=== PATIENT | female | born 1950 | race Caucasian/White ===

== ENCOUNTER 2019-08-13 09:00 | Outpatient (RCR) | payer MEDICARE, BC, SELFPAY ==
--- NOTE | 2019-05-13 09:13 | PCPTNOTE ---
The treatment documented on this account is a continuation of the treatment documented on visit number [id number] in [employer] EMR. Please see documentation on both accounts to view progress. The Plan of Care has been transitioned and updated within the new V#. I have addressed and agree with the discipline specific Problems, Interventions, and Goals for the current certification period. Completed interventions, outcomes, and problems have been marked as Inactive to facilitate the copying of the Care plan routine for recurring accounts.
--- NOTE | 2019-05-23 13:11 | PTOPEVAL ---
PHYSICAL THERAPY REEVALUATION AND UPDATED PLAN OF CARE 05-23-19 Mrs. Hearn has received 16 Physical Therapy sessions, from January 29 to today, for the diagnosis of R breast lymphedema. She was out of town on vacation for 2 weeks of the time frame since the last reevaluation on 04-11-19, so has only had 5 session since then. Compared to the reevaluation on 04-11-19: She has improved with R shoulder flexion and abduction range of motion and strength; decreased fibrosis and tenderness over outer breast. There continues to be tenderness and fibrosis of tissue over inner breast and nipple. And over axillary area, into medial arm, to medial elbow and anterior - mid forearm. Her pain rating is the same. She has been educated on self massage, home exercises for R shoulder and lymphedema care. She may require a compression sleeve to manage her tenderness and pain over R arm; She does not have any edema over her R arm or hand. Her chemo therapy has completed and radiation will start June 01. Recommendation to continue PT treatments 1-2x/week for 6 weeks. Thank you for referring Mrs. Hearn to [facility]. Please review, sign, date and return this plan of care [facility]. I agree with and certify that the following plan of care is medically necessary. Referring Physician Date Admitting Provider: Attending Provider: Genet Elkins MD Referring Provider: *PT Outpatient Evaluation Start: 05/22/19 14:42 Freq: Status: Active Protocol: Document 05/23/19 09:05 EILEEN (Rec: 05/23/19 10:08 EILEEN [email or web address]) Therapy Assessment Status Assessment Status Assessment Status Re-evaluation Evaluation Information Problem Subjective Information Leona reports she is doing well Query Text:As Reported By Patient/ - went on vacation for 2 weeks Family , was able to golf twice, doing home tasks in kitchen with pulling in arm with reaching into cabinet; stated she chemo is completed and is starting radiation Jun 02 to Jul 01. She has been doing her exercises and self massage . Pain Assessment Timing of Pain Assessment Timing of Pain Assessment Assessment Pain Scale Pain Scale Used Numeric (1 - 10) Self Report Pain Assessment Right Breast(s) Reported Pain Level 1 Pain Description Aching,Pulling,Tightness Pain Radiation Right Arm Radicular Pain Location under arm pit, to medial humerus, medial elbow and to ant-mid forearm--pull Pain Frequency Continuous Other Pain Description numbness and tingling in fingers and feet- is less, but still there Current Pain Intensity 1 Lowest Pain Intensity 1 Greatest Pain Intensity
--- NOTE | 2019-07-07 09:52 | PTOPEVAL ---
PHYSICAL THERAPY RE-EVALUATION 07-07-19 Mrs. Hearn has received a total of 21 Physical Therapy sessions, from January 29 to today, for the diagnosis of R breast lymphedema. Since the last reevaluation on 05-23-19: radiation is completed and she continues with herceptin every 3 weeks. Leona has improved with less pain and tenderness with cording over R arm but she still has fibrosis and tenderness over medial elbow and anterior- upper forearm. 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 There continues to be tenderness and fibrosis over outer and lower-inner breast and nipple, but it is less. Her R shoulder flexion AROM is about the same, with less reports of pain and pulling. She has a compression sleeve, but it is uncomfortable and tight over her forearm, can only tolerate wearing it a few hours, then have to remove it. The kinesiotape is helping with decreasing the pain and tenderness over the elbow and forearm. Leona continues to do her R arm exercises and do her self massage. Recommendation is to continue PT 1x/week for 5 weeks, to further decrease the fibrosis, lymphedema and cording over her R breast and UE. Thank you for referring Mrs. Hearn to [facility]. Please review, sign, date and return this plan of care [facility]. I agree with and certify that the following plan of care is medically necessary. Referring Physician Date Attending Provider: Dr. Genet Elkins *PT Outpatient Re-Evaluation Document 07/07/19 08:55 EILEEN (Rec: 07/07/19 09:52 EILEEN [email or web address]) Therapy Assessment Status Assessment Status Assessment Status Re-evaluation Evaluation Information Problem Subjective Information Tenisha reports: cording is Query Text:As Reported By Patient/ less, tenderness but not Family painful; kinesiotape helps; radiation is completed; have herceptin treatments every 3 weeks; has compression sleeve, but it is too tight and uncomfortable, feels like PT is helping and wants to continue therapy. Pain Assessment Timing of Pain Assessment Timing of Pain Assessment Assessment Pain Scale Pain Scale Used Numeric (1 - 10) Self Report Pain Assessment Right Breast(s) Reported Pain Level 0 Pain Description Radiating,Tightness Pain Radiation Right Arm Radicular Pain Location no pain, but tender and pulling at arm pit, medial elbow,forearm to wrist Pain Frequency Intermittent Interventions Used By Clinicians Taping Other Alleviating Interventions kinesiotape with 4 strips,to facilitate lymph flow- 2 over forearm&2 humerus Pain Score Pain Score 0: Self Report Upper Extremity Range of Motion General Upper Extremity Range of Motion Gross Upper Extremity Range of Motion R shoulder active flexion to Comments 135' with reports of pulling under arm- axilla, medial
--- NOTE | 2019-08-13 10:30 | PTOPEVAL ---
PHYSICAL THERAPY DISCHARGE 08-13-2019 Mrs. Hearn has received 26 Physical Therapy sessions, from January 29 to today, for the diagnosis of R breast lymphedema. Leona will be discharged from PT services at this time, the goals were partially achieved. She is independent with her home exercises, self massage, has a compression sleeve and bra and demonstrates a good understanding of self care of her lymphedema. Leona has returned to all of her usual home tasks and activities. She continues to have Herceptin treatment, with 8 more remaining. Thank you for referring Mrs. Hearn to [facility]. Please review, sign, date and return this plan of care [facility]. I agree with and certify that the following plan of care is medically necessary. Referring Physician Date Attending Provider: Dr. Genet Elkins *PT Outpatient Discharge Document 08/13/19 10:14 EILEEN (Rec: 08/13/19 10:30 EILEEN [email or web address]) Problem Subjective Information Leona reports: arm and breast Query Text:As Reported By Patient/ is much better; is doing all Family of her home tasks, but does have pulling in her R arm pit and shoulder when reaching fast up overhead; has 8 more Herceptin treatments; is not wearing her compression sleeve all the time, only when arm is sore or swollen; also has a compression bra; is doing her home exercises and agrees to discharge from therapy. Pain Assessment Pain Scale Pain Scale Used Numeric (1 - 10) Self Report Pain Assessment Right Breast(s) Reported Pain Level 0 Pain Description Soreness,Tender on Palpation, Tightness Pain Radiation Right Arm Radicular Pain Location tight in armpit, pulling in arm pit, tender over forearm sometimes Pain Frequency Chronic,Intermittent Current Pain Intensity 0 Lowest Pain Intensity 0 Greatest Pain Intensity 1 Pain Level Goal 0 Pain Aggravating Factors Exercise/Activity Other Pain Aggravating Factors reach up too quick with R arm Additional Pain Comments compression sleeve helps arm feel better Pain Score Pain Score 0: Self Report Upper Extremity Range of Motion General Upper Extremity Range of Motion Gross Upper Extremity Range of Motion standing shoulder active Comments flexion R 145'/ L 150'; Lymphedema Evaluation Skin Inspection Location Right Breast,Right Upper Extremity,Right Anterior Uppe
== END 2019-08-14 09:47 | disposition home or self-care (01) ==
LOC: ANHPT 09:00
PROVIDERS: PCP Surgery Plastic and Reconstructive Surgery; Visit Provider Surgery Plastic and Reconstructive Surgery
DX: I89.0 Lymphedema, not elsewhere classified (principal); C50.911 Malignant neoplasm of unspecified site of right female breast; Z80.3 Family history of malignant neoplasm of breast
CPT/HCPCS: 97110; 97140

== ENCOUNTER 2019-12-11 12:18 | Outpatient (CLI) | payer MEDICARE, BC, SELFPAY ==
--- NOTE | 2019-12-11 | ECHO_ITS ---
Patient Info Name: Tenisha Hearn Age: 69 years : 1950 Gender: Female Ht: 66 in Wt: 170 lbs BSA: 1.91 m2 BP: 169 / 98 mmHg Heart Rhythm: Sinus Rhythm Technical Quality: Good Exam Date: 12/11/2019 1:06 PM Exam Location: [facility] Patient Status: Outpatient Admit Date: 12/11/2019 Staff Ordering Physician: Familia Garcia MD Headwaitress: German Whitfield, MARAH, RT Attending Provider: Familia Garcia MD Referring Physician: Radha BLOUNT; Exam Type: CA echo doppler color flow Study Info Indications C50.411 - Malignant neoplasm of upper-outer quadrant of right female breast Complete two-dimensional, color flow and Doppler transthoracic echocardiogram is performed. Summary 1. Left ventricular systolic function is normal, estimated at 55-60%. 2. Regional wall motion assessment limited due to poor endomyocardial border definition in several views. 3. The left ventricular diastolic function is normal. 4. Global longitudinal strain is mildly elevated at -12 %. 5. There is trace tricuspid valve regurgitation. 6. Unable to assess PA systolic pressure due to poor spectral resolution of tricuspid regurgitant jet velocity. Left Ventricle Left ventricular chamber dimension is normal. Left ventricular systolic function is normal, estimated at 55-60%. There is no increased left ventricular wall thickness. The left ventricular diastolic function is normal. Global longitudinal strain is mildly elevated at -12 %. Regional wall motion assessment limited due to poor endomyocardial border definition in several views. Right Ventricle Right ventricular chamber dimension is normal. Right ventricular systolic function is normal. Left Atria Left atrial chamber dimension is normal. Right Atria Right atrial chamber dimension is normal. Aortic Valve The aortic valve is trileaflet. There is mild aortic valve sclerosis. There is no aortic valve stenosis. There is mild aortic valve regurgitation. Pulmonic Valve The pulmonic valve is not well visualized. Mitral Valve The mitral valve has normal leaflets. There is trace mitral valve regurgitation. Tricuspid Valve The tricuspid valve leaflets are normal. There is trace tricuspid valve regurgitation. Unable to assess PA systolic pressure due to poor spectral resolution of tricuspid regurgitant jet velocity. Pericardium/Pleural The pericardium appears normal. There is no pericardial effusion. Inferior Vena Cava Normal inferior vena cava with >50% collapse upon inspiration consistent with normal right atrial pressure, 5 mmHg. Aorta The aortic root size at the sinus of Valsalva is normal. Left Ventricular Outflow Tract Name Value Normal LVOT 2D LVOT Diameter 2.0 cm LVOT Doppler LVOT Peak Gradient 5 mmHg LVOT Mean Gradient 2 mmHg LVOT VTI 22 cm LVOT VTI/AV VTI Ratio 0.8 LVOT Stroke Volume 68 ml LVOT CO 4.8 l/min LVOT CI 2.5
== END 2019-12-11 12:19 | disposition home or self-care (01) ==
LOC: ANHCARD 12:20
PROVIDERS: Visit Provider Internal Medicine Hematology & Oncology
DX: Z01.810 Encounter for preprocedural cardiovascular examination (principal)
CPT/HCPCS: 93306